=== PATIENT | female | born 1985 | race Caucasian/White ===

== ENCOUNTER 2019-05-23 09:29 | Outpatient (CLI) | payer BC ==
--- NOTE | 2019-05-23 12:32 | ULT ---
RENAL SONOGRAM: HISTORY: Urinary tract infection. Sepsis. Right flank pain. COMPARISON: CT from [facility] 08/17/2018. FINDINGS: The right kidney measures up to 11.6 cm with moderate to severe hydronephrosis that persisted after v oiding by the patient. The left kidney measured up to 11.8 cm with a normal appearance. The urinary bladder is incompletely distended. Bilateral ureteral jets were documented within the urinary bladd er. IMPRESSION: Moderate to severe right hydronephrosis. Right ureteral jet is documented in the bladder. Uncertain cause for hydronephrosis. CT abdomen/pelvis employing a urography protocol could be used for additi onal evaluation. POS: [facility]
== END 2019-05-23 09:30 | disposition home or self-care (01) ==
LOC: SCSULT 09:29
PROVIDERS: ATTEND Urology
DX: N20.0 Calculus of kidney (principal); N13.30 Unspecified hydronephrosis; Z96.0 Presence of urogenital implants
CPT/HCPCS: 76770